=== PATIENT | male | born 1975 | race Caucasian/White ===

== ENCOUNTER → 2018-08-04 16:01 | Emergency (ER) | payer OTHER ==
[~2018-08-04 16:01] MED LIST: Lidocaine Patch REMOVE* 1 NOTE MISC SCH; METHOCARBAMOL IV ONE; Methocarbamol TAB* 500 MG PO ONE; Methocarbamol* 100 MG/ML 10 ML VIAL IV ONE; NS 0.9% IV ONE
[2018-08-04] MEDS: Dexamethasone IV* 4 MG/ML 1 ML (4 MG) IV SLOW PU ONE (17:33)
[2018-08-04] MEDS: Ketorolac INJ* 30 MG/ML 1 ML VIAL IV PUSH ONE (17:33)
--- NOTE | 2018-08-04 17:34 | ED ---
Back Pain - HPI Summary HPI Summary: 43-year-old male presents with back pain today. Has been having back pain for past 15 years. He states bent over and felt the extreme pain in his lower back. He states he denies any numbness or tingling. No pain down the legs. He denies any saddle anesthesia. No loss or bladder. No fevers. He hasn't taking anything for his pain. He was given fentanyl en route by EMS and states that helped with pain but is having spasming. Denies abdominal pain. No chest pain or shortness breath. Has no medical conditions. - History of Current Complaint Chief Complaint: EDBackInjuryPain Stated Complaint: SEVERE BACK PAIN PER Time Seen by Provider: 08/04/18 16:08 Pain Intensity: 4 - Allergies/Home Medications Allergies/Adverse Reactions: Allergies Allergy/AdvReac Type Severity Reaction Status Date / Time No Known Allergies Allergy Verified 08/04/18 16:15 Home Medications: Home Medications Guanfacine HCl 4 mg PO DAILY 08/04/18 [History Confirmed 08/04/18] Simvastatin TAB(NF) [Zocor 10 MG (NF)] 10 mg PO DAILY 08/04/18 [History Confirmed 08/04/18] PMH/Surg Hx/FS Hx/Imm Hx Endocrine/Hematology History: Denies: Hx Diabetes, Hx Thyroid Disease Cardiovascular History: Denies: Hx Hypertension Respiratory History: Denies: Hx Asthma, Hx Chronic Obstructive Pulmonary Disease (COPD) GI History: Denies: Hx Ulcer Infectious Disease History: No Infectious Disease History: Denies: Hx Hepatitis, Hx Human Immunodeficiency Virus (HIV), Traveled Outside the [place] in Last 30 Days - Social History Alcohol Use: None Substance Use Type: Reports: None Smoking Status (MU): Never Smoked Tobacco Review of Systems Negative: Fever Negative: Chest Pain Negative: Shortness Of Breath Positive: Myalgia - back pain All Other Systems Reviewed And Are Negative: Yes Physical Exam Triage Information Reviewed: Yes Vital Signs On Initial Exam: Initial Vitals Temp Pulse Resp BP Pulse Ox 97.5 F 67 16 107/67 98 08/04/18 16:12 08/04/18 16:12 08/04/18 16:12 08/04/18 16:12 08/04/18 16:12 Vital Signs Reviewed: Yes Appearance: Positive: Pain Distress Skin: Positive: Warm, Dry Head/Face: Positive: Normal Head/Face Inspection Eyes: Positive: Normal, Conjunctiva Clear ENT: Positive: Pharynx normal Respiratory/Lung Sounds: Positive: Clear to Auscultation, Breath Sounds Present Cardiovascular: Positive: Normal, RRR Musculoskeletal: Positive: Limited @ - back, Other - tenderness right side of back, neg SLR Neurological: Positive: Babinski Bilateral - normal Psychiatric: Positive: Normal Diagnostics - Vital Signs Vital Signs Temp Pulse Resp BP Pulse Ox 08/04/18 16:12 97.5 F 67 16 107/67 98 - Laboratory Lab Statement: Any lab studies that have been ordered have been reviewed, and results considered in the medical decision making process. - CT lumbar CT Interpretation Completed By: Radiologist Summary of CT Findings: IMPRESSION: There is minimal posterior endplate degenerative spurring and broad-based disc. bulge at L4-5 with associated mild spinal canal stenosis and mild bilateral. neural foraminal stenosis at L4-5. Re-Evaluation - Re-Evaluation First Eval Re-Evaluation Time: 18:44 Change: Improved Comment: pain is better Second Eval Re-Evaluation Time: 19:51 Change: Improved Back Pain Course/Dx - Course Course Of Treatment: 43-year-old male presents with back pain today. Has been having back pain for past 15 years. He states bent over and felt the extreme pain in his lower back. He states he denies any numbness or tingling. No pain down the legs. He denies any saddle anesthesia. No loss or bladder. No fevers. He hasn't taking anything for his pain. He was given fentanyl en route by EMS and states that helped with pain but is having spasming. Denies abdominal pain. No chest pain or shortness breath. Has no medical conditions. On exam tenderness greatest in the right side of her lower back. Neurovascular intact. Negative straight leg raise. gave robaxin and toradol and pain improved. CT shows disc protrusin L4-L5. discussed will add on muscle relaxer and steriod. told follow up with primary. patient understand and agrees with plan. - Diagnoses Differential Diagnosis/HQI/PQRI: Positive: Fracture, Herniated Disc, Strain Provider Diagnoses: Back pain Discharge - Sign-Out/Discharge Documenting (check all that apply): Patient Departure Patient Received Moderate/Deep Sedation with Procedure: No - Discharge Plan Condition: Good Disposition: HOME Prescriptions: Methocarbamol TAB* [Robaxin 500 MG TAB*] 750 mg PO TID PRN #21 tab PRN Reason: Pain methylPREDNISolone [Medrol Dosepak 4 MG*] 4 mg PO .SEE AILEEN INSTRUCTION #1 packet Patient Education Materials: Back Pain (ED) Referrals: Daphnie Hill [Primary Care Provider] - [facility] [place] Physical therapy,PT [Medical Doctor] - Additional Instructions: Follow directions on package for Medrol pack Take muscle relaxers three times a day Use ibuprofen or Tylenol for pain every 6 hours ice/heat area, move as much as possible Follow up with primary within 5 days follow up with PT Return to ED if develop any new or worsening symptoms - Billing Disposition and Condition Condition: GOOD Disposition: Home
[2018-08-04] MEDS: NS 0.9% IV ONE (17:47)
[2018-08-04] MEDS: METHOCARBAMOL IV ONE (17:47)
[2018-08-04] MEDS: Lidocaine PATCH 5%* 1 PATCH TRANSDERM ONE (18:57)
[2018-08-04 20:30] VITALS: BP 113/65
== END | disposition home or self-care (01) ==
LOC: ED 16:01
DX: M54.9 Dorsalgia, unspecified (principal); Z79.899 Other long term (current) drug therapy
CPT/HCPCS: 72131; 96374; 96375; 99283; A9270-GY; J1100; J1885; J2800

== ENCOUNTER 2018-09-28 18:02 | Emergency (ER) | payer OTHER ==
[2018-09-28 19:06] VITALS: BP 125/72
[2018-09-28] MEDS ORDERED: Naproxen TAB* 250 MG PO ONE (19:18)
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
== END 2018-09-28 19:32 | disposition home or self-care (01) ==
LOC: UCEAST 18:02
DX: M25.561 Pain in right knee (principal); E78.5 Hyperlipidemia, unspecified
CPT/HCPCS: 99212; A9270-GY; G0463